=== PATIENT | female | born 2000 | race American Indian/Alaskan Native ===

== ENCOUNTER 2021-02-09 16:49 | Emergency (ER) | payer SELFPAY ==
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
[2021-02-09 19:19] VITALS: BP 94/55
== END 2021-02-09 19:18 | disposition home or self-care (01) ==
LOC: ED 16:49
DX: M79.605 Pain in left leg (principal); Z79.899 Other long term (current) drug therapy
CPT/HCPCS: 73521; 99282